=== PATIENT | male | born 1960 | race Caucasian/White ===

== ENCOUNTER 2017-12-16 21:04 | Emergency (ER) | payer BC, SELFPAY ==
[2017-12-16 21:05] VITALS: BP 129/92; PULSE 92; RESP 22; TEMP 36; O2SAT 100; BMI 34.4
--- NOTE | 2017-12-16 21:27 | ED.DCSUM_ITS ---
- ER Visit Summary Date of Service: 12/16/17 Chief Complaint: Left abdominal pain History of Present Illness: The patient is a 57 M who presents for 5 hours of severe left-sided abdominal pain radiating into the left lower back. Patient states it was sudden in onset, and after onset he had to have a large bowel movement. Pain did not subside afterwards. He has had associated nausea and vomited once. No diarrhea. Decreased urine output but no hematuria, dysuria, frequency or urgency. No fever. He does have a history of kidney stones in the past that did not require any intervention. No other medical problems. Physical Examination: Vital signs: afebrile, hemodynamically stable, no hypoxia on room air General: well nourished, well developed, in no distress appears uncomfortable Skin: warm, dry, no rash, no pallor HEENT: normocephalic and atraumatic; PERRL, EOMI, moist mucous membranes Cardiovascular: regular rate and rhythm without murmurs, no peripheral edema, 2 + pulses all distal extremities Respiratory: No increased work of breathing, lungs are clear to auscultation bilaterally, no rales, rhonchi or wheezing Abdominal: Abdomen is soft, tender in the left lower quadrant with normoactive bowel sounds, no guarding or rebound, no masses, no CVA tenderness MSK: Moves all extremities, no deformities, normal strength Neuro: Awake and alert, oriented ?4. No facial droop, sensation and motor function intact and symmetric Test Results: Abnormal Lab Results 12/16/17 12/16/17 21:25 21:25 WBC 15.4 H RBC 5.43 Hgb 17.1 H Hct 49.7 MCV 91.5 MCH 31.5 MCHC 34.4 RDW 13.4 RDW Differential 44.2 H Plt Count 277 MPV 10.0 Immature Gran % (Auto) 0.400 Neut % (Auto) 86.4 H Lymph % (Auto) 9.1 L Dundy % (Auto) 3.8 Eos % (Auto) 0.2 Baso % (Auto) 0.1 Absolute Neuts (auto) 13.3 H Absolute Lymphs (auto) 1.40 Total Counted Not Reportable Urine Color Yellow Urine Clarity Clear Urine pH 6.0 Ur Specific D[place] 1.020 Urine Protein 30 H Urine Glucose (UA) Normal Urine Ketones 5 H Urine Occult Blood 250 H Urine Nitrite Negative Urine Bilirubin Negative Urine Urobilinogen Normal Ur Leukocyte Esterase Negative Urine RBC 5-10 SEEN Urine WBC 0 SEEN Ur Squamous Epith Cells 0-5 SEEN Urine Bacteria 0 SEEN Urine Mucus 0 SEEN Clinical Impression(s) from Imaging Studies Abdomen/Pelvis CT 12/16/17 21:25 IMPRESSION: 2.9 mm stone distal left ureter with mild to moderate hydronephrosis left renal edema. Right side calcifications without evidence of hydronephrosis. Bilateral benign appearing renal cysts. Degenerative change thoracolumbar spine most significant at L2-L3 L3-L4. Hepatic steatosis with sparing. Electronically Signed: Rivka Crowe MD at 22:50 EDT Tel , Service support , Medications Given Sodium Chloride () 1,000 mls @ 250 mls/hr IV .Q4H RICKI Last Admin: 12/16/17 21:35 Dose: 250 mls/hr Discontinued Medications Ketorolac Tromethamine (Toradol) 15 mg IV X1 ONE Stop: 12/16/17 21:25 Last Admin: 12/16/17 21:36 Dose: 15 mg Morphine Sulfate () 4 mg IV X1 ONE Stop: 12/16/17 21:25 Last Admin: 12/16/17 21:35 Dose: 4 mg Promethazine HCl (Phenergan) 6.25 mg IV X1 ONE Stop: 12/16/17 21:32 Last Admin: 12/16/17 21:35 Dose: 6.25 mg Emergency Department Course and Treatment: Patient was given Toradol, Phenergan and morphine for symptomatic relief. Patient's labs remarkable for leukocytosis of 15.4 and hematuria on urinalysis. No renal insufficiency. No UTI. CT flank showed a 3.9 mm stone in the left distal ureter with mild hydronephrosis. Patient felt much better after medication. He was given a prescription for pain medication and Zofran for home. He was given follow-up with urology. He was given return precautions. Discharged home in improved condition with his . Treatment Plan: [] Disposition: [] Impression: Left ureteral colic with distal ureteral stone This note was generated with [employer] software. It may contain incorrect words, spelling, and punctuation that were not noted in review of the chart prior to signing ED Disposition - Plan for ED Patient: Chief Complaint: Flank Pain Referrals: Valeriano Pearce MD [Primary Care Provider] -
[2017-12-16 21:32] LABS: Bacteria 0 SEEN /hpf (None Seen); Mucous, Urine 0 SEEN /hpf (<or=2+); White Blood Cells 0 SEEN /hpf (0-5)
[2017-12-16] MEDS: 0.9% Normal Saline 1,000 ML 250 ML IV (21:35)
[2017-12-16] MEDS: Morphine 4 MG/ML Syringe IV (21:35)
[2017-12-16] MEDS: proMETHazine 25 MG/ML Syringe 6.25 MG IV (21:35)
[2017-12-16 21:36] LABS: Color, Urine Yellow (Yellow); Glucose, Dipstick Normal (Normal); Ketone-Dipstick 5 mg/dl (Negative); Leukocyte Esterase-Dipstick Negative /ul (Negative); Nitrite-Dipstick Negative (Negative); Occult Blood-Urine 250 /ul (Negative); Protein-Dipstick 30 mg/dl (Negative); Urine Bilirubin Dipstick Negative (Negative); Urine Clarity Clear (Clear); Urine Urobilinogen Normal (Normal)
[2017-12-16] MEDS: Ketorolac 30 MG/ML Syringe 15 MG IV (21:36)
[2017-12-16 21:37] LABS: Absolute Neutrophil Count 13.3 X10^3/uL (2.0-7.7); Basophil# 0.02 X10^3/uL; Basophil% 0.1 % (0-1); Eosinophil# 0.03 X10^3/uL; Eosinophils% 0.2 % (0-5); Hematocrit 49.7 % (40-54); Hemoglobin 17.1 g/dl (13.0-16.5); Lymphocyte % 9.1 % (19-41); Mean Corp Hgb Conc 34.4 g/gl (32-36); Mean Corpuscular Hgb 31.5 pg (27.0-32.0); Mean Corpuscular Volume 91.5 fL (80-94); Monocyte# 0.58 X10^3/uL; Monocyte% 3.8 % (0-10); Neutrophil # 13.26 X10^3/uL (2.7-7.7); Neutrophil % 86.4 % (47-70); Platelet Count 277 K/mm3 (150-450); RBC Distribution Width CV 13.4 % (11.6-14.6); RBC Distribution Width SD 44.2 fl (35.1-43.9); Red Blood Count 5.43 M/mm3 (4.6-6.2); White Blood Count 15.4 K/mm3 (4.4-11.0)
[2017-12-16 21:47] LABS: Red Blood Cells-Urine 5-10 SEEN /hpf (0-5)
[2017-12-16 21:48] LABS: Squamous Epithelial Cells - UA 0-5 SEEN /hpf (0-5)
[2017-12-16 21:49] LABS: POSITIVE COUNT NO; POSITIVE DIFFERENTIAL NO; POSITIVE MORPHOLOGY NO
--- NOTE | 2017-12-16 23:17 | ED.DEP ---
ED Disposition - Plan for ED Patient: Disposition: Home or Assisted Living Chief Complaint: Flank Pain Instructions: ED Stone Renal W Colic Prescriptions: Oxycodone HCl/Acetaminophen [Percocet 5/325] 1 tab PO Q6H PRN PRN 3 Days #12 tab PRN Reason: Pain Ondansetron [Zofran Odt] 4 mg PO Q8H PRN PRN #10 tab PRN Reason: Nausea Naproxen [Naprosyn] 500 mg PO BID PRN #20 tab Referrals: Valeriano Pearce MD [Primary Care Provider] - As Needed Tom Blank MD [STAFF PHYSICIAN] - 1 Week if not improving Additional Instructions: use the naproxen for pain and the percocet for severe pain. Use the ondansetron as needed for nausea. follow up with urology if you have any concerns, and return to the emergency department if your pain is poorly controlled at home, if you develop fever, inability to urinate, or of any other further concerns. If you have any worsening of your condition or any new concerning symptoms, please return immediately to the emergency department for another evaluation.
[2017-12-16 23:29] VITALS: BP 163/98; PULSE 97; RESP 18; O2SAT 95
[2017-12-16] MEDS: HYDROcodone Bitartrate/Apap 5/325 Tablet PO (23:39)
--- NOTE | 2017-12-16 23:41 | NURSING ---
URINAL, [facility] [employer] SENT HOME WITH THE PATIENT PER PATIENT REQUEST AND OK FROM DR. HERRON.
[2017-12-17 00:45] LABS: Anion Gap 15 (5-15); BUN 23 mg/dL (7-18); BUN/Creat Ratio 14.8 RATIO (10-20); Chloride 106 mmol/L (98-107); Creatinine, Serum 1.55 mg/dL (0.70-1.30); Estimated Creatinine Clearance 54.29 ml/min; Glucose 144 mg/dL (74-106); Potassium 5.5 mmol/L (3.5-5.1); Sodium Level 133 mmol/L (136-145)
[2017-12-21 00:16] LABS: EST Glomerular Filtration Rate 49 mL/min (>60); Est Glom Filt Rate - Afr Amer 60 mL/min (>60)
== END 2017-12-16 23:42 | disposition home or self-care (01) ==
PROVIDERS: Emergency Provider Emergency Medicine; PCP Family Medicine
DX: N13.2 Hydronephrosis with renal and ureteral calculous obstruction (principal); Z87.442 Personal history of urinary calculi
CPT/HCPCS: 74176; 80048; 81001; 85025; 96361; 96374; 96375; 99283; J7030

== ENCOUNTER → 2023-06-17 | Outpatient (CLI) | payer OTHER, SELFPAY ==
[2023-06-17 14:48] LABS: Bacteria 0 SEEN /hpf (None Seen); Mucous, Urine 0 SEEN /hpf (<or=2+); Red Blood Cells-Urine 0 SEEN /hpf (0-5); Squamous Epithelial Cells - UA 0 SEEN /hpf (0-5); White Blood Cells 0 SEEN /hpf (0-5)
[2023-06-17 15:47] LABS: EXAGEN MAILED SPECIMEN
[2023-06-17 17:37] LABS: Absolute Lymphocyte Count 2.97 X10^3/uL (0.83-4.51); Absolute Neutrophil Count 6.5 X10^3/uL (2.0-7.7); Basophil# 0.04 X10^3/uL; Basophil% 0.4 % (0-1); Eosinophil# 0.14 X10^3/uL; Eosinophils% 1.3 % (0-5); Hematocrit 52.1 % (40-54); Hemoglobin 17.5 g/dL (13.0-16.5); Lymphocyte # 2.97 X10^3/ul (0.83-4.51); Lymphocyte % 28.3 % (19-41); Mean Corp Hgb Conc 33.6 g/dL (32-36); Mean Corpuscular Hgb 30.2 pg (27.0-32.0); Mean Corpuscular Volume 89.8 fL (80-94); Mean Platelet Vol. 9.5 fl (6.2-12.0); Monocyte# 0.78 X10^3/uL; Monocyte% 7.4 % (0-10); NRBC Flagged by Analyzer 0 % (0-5); Neutrophil # 6.51 X10^3/uL (2.7-7.7); Neutrophil % 62.1 % (47-70); Platelet Count 316 K/mm3 (150-450); RBC Distribution Width CV 12.7 % (11.6-14.6); RBC Distribution Width SD 41.6 fl (35.1-43.9); White Blood Count 10.5 K/mm3 (4.4-11.0)
[2023-06-17 17:53] LABS: Erythrocyte Sedimentation Rate 16 mm/hr (0-20)
[2023-06-17 17:55] LABS: Color, Urine Yellow (Yellow); Glucose, Dipstick Normal (Normal); Ketone-Dipstick Negative (Negative); Leukocyte Esterase-Dipstick Negative /ul (Negative); Nitrite-Dipstick Negative (Negative); Occult Blood-Urine 10 /ul (Negative); Protein-Dipstick 15 mg/dl (Negative); Specific Gravity, Urine 1.025 (1.002-1.030); Urine Bilirubin Dipstick Negative (Negative); Urine Clarity Clear (Clear); Urine Urobilinogen Normal (Normal)
[2023-06-17 18:09] LABS: Protein:Creat Ratio 449 mg/g CRE (0-200)
--- OUTSIDE RECORDS SUMMARY | 2023-06-17 18:39 | XMS RPT_ITS | CCD ---
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 Name Role Phone Joseluis Pearce Ciara Unavailable Unavailable Unavailable [facility] ED, David Unavailable Unavaila ble Sheets DO, Papito Sol Primary Care Provider [phone] [facility] ED, David Unavailable Unavaila ble Marquis Davila MD Unavailable [phone] MARQUIS DAVILA Attending Unavailable SHEETS, PAPITO Referring Unavailable SHEETS, PAPITO Primary Care Unavailable SHEETS, PAPITO C Referring Unavailable SHEETS, PAPITO C Primary Care Unavailable SHEETS, PAPITO C Referring Unavailable SHEETS, PAPITO C Attending Unavailable SHEETS, PAPITO C Primary Care Unavailable SHEETS, PAPITO C Attending Unavailable SHEETS, PAPITO C Primary Care Unavailable SHEETS, PAPITO C Primary Care Unavailable MARQUIS DAVILA Referring Unavailable SHEETS, PAPITO C Primary Care Unavailable SHEETS, PAPITO C Referring Unavailable SHEETS, PAPITO C Referring Unavailable SHEETS, PAPITO C Primary Care Unavailable SHEETS, PAPITO C Referring Unavailable SHEETS, PAPITO C Primary Care Unavailable Allergies Allergy Classification Reported Allergen(s) Allergy Type Date of Onset Reaction(s) Facility (2 sources) Loratadine; Translations: [Claritin] Drug Allergy -[facility] DO Work Phone: (12 sources) Loratadine / Pseudoephedrine ; Translations: [LORATADINE-PSE UDOEPHEDRINE] Drug Allergy 2 Other: See Comments [facility] Work Phone: (12 sources) Meperidine; Translations: [MEPERIDINE] Drug Allergy [address] [facility] (1 source) ALLERGIES NOT ON FILE; Translations: [ALLERGIES NOT ON FILE] Propensity to adverse reactions (disorder) [facility] Medications Current Medications Medication Drug Class(es) Dates Sig (Normalized) Sig (Original) amoxicillin 875 mg / clavulanate 125 mg oral tablet (2 sources) Penicillin-class Antibacterial Start: 02-25-2023 End: 03-04-2023 take 1 tablet by mouth every twelve hours amoxicillin-clav ulanate potassium (AUGMENTIN) 875-125 mg per tablet Indications: Bacterial sinusitis Take 1 tablet by mouth every 12 hours for 7 days. 14 tablet 0 02/25/2023 03/04/2023 Active Completed/Discontinued Medications Medication Drug Class(es) Dates Sig (Normalized) Sig (Original) [id number] 200 actuat albuterol 0.09 mg/actuat metered dose inhaler (9 sources) beta2-Adrenergic Agonist Start: 02-28-2023 End: 03-22-2023 take 2 puff(s) by inhalation every four hours as needed for wheezing albuterol HFA (PROVENTIL HFA, VENTOLIN HFA) 90 mcg/actuation inhaler Indications: Bronchitis Inhale 2 Puffs as instructed every 4 hours as needed for wheezing/shortnes s of breath. 1 Each 0 03/22/2023 Active Problems Active Problems Problem Classification Problem Date Documented Date Episodic/Chronic Acute bronchitis (2 sources) Acute bronchitis; Translations: [Acute bronchitis] Episodic Allergic reactions (1 source) Contact dermatitis due to poison boom; Translations: [Allergic contact dermatitis due to plants, except food] Episodic Bacterial infection; unspecified site (2 sources) Other specified bacterial agents as the cause of diseases classified elsewhere; Translations: [Other specified bacterial agents as the cause of diseases classified elsewhere] Onset: 2023 Episodic Chronic obstructive pulmonary disease and bronchiectasis (2 sources) Bronchitis; Translations: [Bronchitis, not specified as acute or chronic] 02-28-2023 Episodic Coma; stupor; and brain damage (2 sources) Daytime somnolence; Translations: [Hypersomnia, unspecified] Episodic Disorders of lipid metabolism (2 sources) Mixed hyperlipidemia; Translations: [Mixed hyperlipidemia] Onset: 02-25-2023 02-25-2023 Chronic Esophageal disorders (2 sources) Gastroesophageal reflux disease without esophagitis; Translations: [Gastro-esophageal reflux disease without esophagitis] Onset: 02-25-2023 02-25-2023 Chronic Immunizations and screening for infectious disease (6 sources) Anti-nuclear factor positive; Translations: [Other specified abnormal immunological findings in serum] Onset: 05-28-2023 05-28-2023 Episodic Malaise and fatigue (2 sources) Fatigue; Translations: [Other malaise and fatigue] Episodic Other injuries and conditions due to external causes (2 sources) Injury of knee; Translations: [Knee, leg, ankle, and foot injury] Episodic Other lower respiratory disease (2 sources) Idiopathic interstitial pneumonia, not otherwise specified; Translations: [Idiopathic interstitial pneumonia, not otherwise specified (CMS/HCC)] Onset: 05-11-2023 Chronic Other lower respiratory disease (3 sources) Interstitial lung disease; Translations: [Interstitial pulmonary disease, unspecified] Onset: 05-28-2023 05-28-2023 Chronic Other lower respiratory disease (1 source) Interstitial pulmonary disease, unspecified; Translations: [Interstitial pulmonary disease (HCC)] Onset: 05-03-2023 Chronic Other lower respiratory disease (2 sources) Snoring; Translations: [Other respiratory abnormalities] Episodic Other lower respiratory disease (1 source) Cough; Translations: [Acute cough] 02-27-2023 Episodic Other lower respiratory disease (3 sources) Persistent cough; Translations: [Persistent cough] Onset: 04-17-2023 03-22-2023 Episodic Other lower respiratory disease (2 sources) Chronic cough; Translations: [Chronic cough] Onset: 2023 Episodic Other non-traumatic joint disorders (2 sources) Pain in unspecified knee; Translations: [Knee pain] Episodic Other nutritional; endocrine; and metabolic disorders (11 sources) Obese class II; Translations: [Obesity, unspecified] Onset: 02-25-2023 Chronic Other nutritional; endocrine; and metabolic disorders (1 source) Obesity, unspecified; Translations: [Obesity, Class II, BMI 35-39.9] Onset: 02-25-2023 Chronic Other upper respiratory infections (5 sources) Bacterial sinusitis; Translations: [Chronic sinusitis, unspecified] Onset: 2023 02-27-2023 Chronic Other upper respiratory infections (2 sources) Acute maxillary sinusitis; Translations: [Acute maxillary sinusitis] Episodic Residual codes; unclassified (2 sources) Obstructive sleep apnea of adult; Translations: [Obstructive sleep apnea (adult)(pediatric)] Chronic Spondylosis; intervertebral disc disorders; other back problems (10 sources) Displacement of thoracic intervertebral disc without myelopathy; Translations: [Other intervertebral disc displacement, thoracic region] Onset: 08-06-2013 08-06-2013 Chronic Sprains and strains (8 sources) Strain of knee; Translations: [Sprains and strains of unspecified site of knee and leg] Episodic Past or Other Problems Problem Classification Problem Date Documented Da te Episodic/Chronic Nonspecific chest pain (3 sources) Chest pain; Translations: [Chest pain, unspecified] Onset: 03-05-2023 02-27-2023 Episodic Other connective tissue disease (10 sources) Disease suspected; Translations: [Other symptoms and signs involving the nervous system] Onset: 07-25-2020 07-25-2020 Episodic Other screening for suspected conditions (not mental disorders or infectious disease) (2 sources) Patient encounter status; Translations: [Encounter for screening for malignant neoplasm of prostate] Onset: 02-25-2023 02-25-2023 Episodic Spondylosis; intervertebral disc disorders; other back problems (10 sources) Lumbar disc prolapse with radiculopathy; Translations: [Intervertebral disc disorders with radiculopathy, lumbar region] Onset: 08-06-2013 08-06-2013 Episodic Results Test Name Value Interpretation Reference Range Facil ity Vital Signs Date Time Vital Sign Value Performing Clinician Facility 02-25-2023 13:48-0500 Body height 180.3 cm Papito Sheets DO Work Phone: [facility] 02-25-2023 13:48-0500 Body temperature 98.01 [degF] Papito Sheets DO Work Phone: [facility] 02-25-2023 13:48-0500 Body weight 126.1 kg Papito Sheets DO Work Phone: [facility] 02-25-2023 13:48-0500 Diastolic blood pressure 76 mm[Hg] Papito Sheets DO Work Phone: [facility] 02-25-2023 13:48-0500 Heart rate 92 /min Papito Sheets DO Work Phone: [facility] 02-25-2023 13:48-0500 Respiratory rate 18 /min Papito Sheets DO Work Phone: [facility] 02-25-2023 13:48-0500 SaO2% (BldA) [Mass fraction] 96 % Papito Sheets DO Work Phone: [facility] 02-25-2023 13:48-0500 Systolic blood pressure 126 mm[Hg] Papito Sheets DO Work Phone: [facility] 10-02-2022 15:46-0400 Body height 180.3 cm Papito Sheets DO Work Phone: [facility] 10-02-2022 15:46-0400 Body temperature 98.01 [degF] Papito Sheets DO Work Phone: [facility] 10-02-2022 15:46-0400 Body weight 125.37 kg Papito Sheets DO Work Phone: [facility] 10-02-2022 15:46-0400 Diastolic blood pressure 76 mm[Hg] Papito Sheets DO Work Phone: [facility] 10-02-2022 15:46-0400 Heart rate 92 /min Papito Sheets DO Work Phone: [facility] 10-02-2022 15:46-0400 Respiratory rate 18 /min Papito Sheets DO Work Phone: [facility] 10-02-2022 15:46-0400 SaO2% (BldA) [Mass fraction] 95 % Papito Sheets DO Work Phone: [facility] 10-02-2022 15:46-0400 Systolic blood pressure 124 mm[Hg] Papito Sheets DO Work Phone: [facility] 03-08-2021 13:33-0500 Body height 180.34 cm Joseluis Pearce Work Phone: [facility] DO Work Phone: 03-08-2021 13:33-0500 Body mass index (BMI) [Ratio] 36.47 kg/m2 Joseluis Pearce Work Phone: [facility] DO Work Phone: 03-08-2021 13:33-0500 Body surface area Derived from formula 2.36 m2 Joseluis Pearce Work Phone: [facility] DO Work Phone: 03-08-2021 13:33-0500 Body temperature 97.7 [degF] Joseluis Pearce Work Phone: [facility] DO Work Phone: 03-08-2021 13:33-0500 Body weight 118.62 kg Joseluis Pearce Work Phone: [facility] DO Work Phone: 03-08-2021 13:33-0500 Diastolic blood pressure 80 mm[Hg] Joseluis Pearce Work Phone: [facility] DO Work Phone: 03-08-2021 13:33-0500 Heart rate 90 /min Joseluis Pearce Work Phone: [facility] DO Work Phone: 03-08-2021 13:33-0500 SaO2% (BldA) [Mass fraction] 94 % Joseluis Pearce Work Phone: [facility] DO Work Phone: 03-08-2021 13:33-0500 Systolic blood pressure 124 mm[Hg] Joseluis Pearce Work Phone: [facility] DO Work Phone: 03-08-2021 13:33-0500 17 1 Joseluis R Kontak Work Phone: [facility] DO Work Phone: Encounters Encounter Date Encounter Type Care Provider Facility Start: 06-07-2023 Telephone encounter Papito Khan DO Work Phone: [facility] Procedures Date Procedure Procedure Detail Performing Clinician Start: 05-11-2023 RONALDO-WITH REFLEX TO KI Start: 05-11-2023 ANTI-NEUTROPHILIC CY TOPLASMIC ANTIBODY Start: 05-11-2023 C-reactive protein Start: 05-11-2023 CBC W Auto Different ial panel - Blood Start: 05-11-2023 CITRULLINE ANTIBODY, IGG Start: 05-11-2023 Comprehensive metabo lic 2000 panel - Serum or Plasma Start: 05-11-2023 KI PANEL Start: 05-11-2023 HYPERSENSITIVITY PANEL Start: 05-11-2023 Natriuretic peptide B [Mass/volume] in Blood Start: 05-11-2023 RHEUMATOID FACTOR Start: 2023 BORDETELLA PERTUSSIS / PARAPERTUSSIS, PCR Start: 2023 LEGIONELLA ANTIGEN, URINE Start: 2023 T-SPOT TB Start: 03-05-2023 Radiologic exam chest 2 views Papito Khan DO Work Phone: Start: 02-25-2023 Ecg routine ecg w/le ast 12 lds w/i&r Papito Khan DO Work Phone: Start: 04-20-2019 Lipid 1996 panel - S katiana or Plasma Papito Khan DO Work Phone: Plan of Treatment Date Care Activity Detail Author Start: 05-11-2026 Diabetes Screening Diabetes Screenin g [facility] Start: 04-20-2024 Lipid 1996 panel - Serum or Plasma Lipid Screening [facility] Start: 04-20-2024 Lipid panel Lipid Screening [facility] Start: 04-20-2024 [address] S[address]EN L[address]ID SCREEN [facility] Start: 04-15-2023 Depression Assessment Depression Ass essment [facility] Start: 03-22-2023 End: 06-21-2023 B. PERTUSSIS/PARAPERTUSSIS DNA, QL, PCR B. PERTUSSIS/PARAPERTUSSIS DNA, QL, PCR Lab Routine Persistent cough Expected: 03/22/2023, Expires: 06/21/2023 [facility] Work Phone: Immunizations Immunization Date Immunization Notes Care Provider Ching damon 05-30-2021 zoster vaccine recombinant Papito Sheets DO Work Phone: [facility] 03-28-2021 zoster vaccine recombinant Papito Sheets DO Work Phone: [facility] 06-27-2016 influenza virus vacc ine, unspecified formulation Papito Sheets DO Work Phone: [facility] Payers Date Payer Category Payer Private Health Insurance [id number] 2021 Unknown 1960 Unknown [id number] 1960 Unknown [id number] 1960 Unknown [id number] Social History Date Type Detail Facility Start: 02-25-2023 End: 04-19-2023 Never a smoker Never a smoker [facility] Start: 09-16-2013 End: 04-19-2023 Tobacco smoking status NHIS Never smoked tobacco [facility] Start: 09-16-2013 End: 04-19-2023 Tobacco use and exposure [facility] Start: 10-02-2022 End: 04-19-2023 Alcohol intake Current drinker of alcohol (finding) [facility] Start: 10-02-2022 [facility] Start: 1960 Sex Assigned At Not on file [facility] Start: 02-25-2023 End: 04-19-[address] [facility] Adult Depression Screening Assessment [address] [facility] History of tobacco use Passive smoker [facility] Medical Equipment Procedure Code Equipment Code Equipment Origin al Text Equipment Identifier Dates Arthrocell 5.0cc Cellular Bone Graft - [id number] Start: 08-03-2020 Screw Quickfix 3 .6mm Mini Full Thread Titanium 30mm Bone Cannulated - [id number] Start: 08-03-2020 Staple Dynanite Nitinol Titanium 47f54xa Bone Sterile - [id number] Start: 08-03-2020 Screw Quickfix 3 .6mm Mini Full Thread Titanium 28mm Bone Cannulated - [id number] Start: 08-03-2020 Supermx Angelita Sta ple W/Instruments 20mm X 15mm [id number] Start: 08-03-2020 Clinical Notes 08-06-2013 to 06-07-2023 Telephone Encounter - Beatriz Barrera MA - 06/07/2023 2:13 PM ESTTelephone Encounter - Papito Khan DO - 06/07/2023 2:07 PM ESTTelephone Encounter - Sheba Alston MA - 06/07/2023 1:54 PM EST Note Date & Type Note Facility 06-07-2023 Miscellaneous Notes Copy printed and handed to patient Beatriz Barrera MA I but the most recent copy in the shredder box because we already had a copy, but it can also be printed out of his chart to give to him Papito Khan DO Patient aware and wants a copy of test. He will be her later today. Sheba Alston MA Yes, we received the sleep test results - they are dated 03/20/21. Papito Khan DO Pt. Lm on vm wanting to know if you received his sleep apnea test. If not he will go pick it up in [place]. Please advise. Sheba Alston MA documented in this encounter [facility] 05-28-2023 Miscellaneous Notes Pt would like referral to Dr. Calixto rheumatololgist. He was referred to another provider, but would prefer to see Dr. Marily Khan DO documented in this encounter [facility] 05-16-2023 Miscellaneous Notes Patient calling to discuss blood work. Stated he got a voicemail informing that the results could mean multiple things( like lupus etc. ) He stated he called a few times this week and has not received a call back yet. Please call patient at [phone]. Thank you Thank you! documented in this encounter [facility] 05-03-2023 Note HNO ID: [id number] Author: DAYTON ALVAREZ CT Service: Radiology Author Type: Technologist Type: Progress Notes Filed: 05/03/2023 09:53 Note Text: Radiology Service Progress Note PATIENT NAME: Mily Harris DATE OF SERVICE: May 03, 2023 TIME: 9:53 AM PATIENT IDENTITY VERIFICATION COMPLETED USING TWO (2) IDENTIFIERS: Name and Date of confirmed by patient verbally. FALL SCREENING: Has the patient had 2 falls in the last year or 1 fall with injury or currently using an Ambulatory Assistive Device (Walker, Cane, Wheelchair, Crutches, etc.)? No PATIENT GENDER DATA: Male PATIENT RELEVANT IMPLANT DATA REVIEWED: Not Applicable RADIOLOGY DEPARTMENT: CT; Exam(s) Completed: Chest PERIPHERAL IV DATA: Not applicable SIGNED BY: SAWYER Anaya May 03, 2023 9:53 AM [facility] 04-19-2023 Note HNO ID: [id number] Author: MARQUIS DAVILA MD Service: ? Author Type: Physician Type: Progress Notes Filed: 04/19/2023 12:50 Note Text: [facility]PART[facility]UL[facility]ARY [facility]ICINE OFFICE VISIT CONSULT 04/19/2023 Patient Name: Mily Harris PRIMARY CARE PHYSICIAN: Papito Khan DO REASON FOR CONSULT: Persistent cough, postnasal drip, wheezing, obesity, restrictive PFTs better REFERRING PHYSICIAN: Papito Khan DO My final recommendations will be communicated to the requesting health care provider by way of the shared medical record for internal providers or by letter via US mail for external providers. CHIEF COMPLAINT: Persistent cough, postnasal drip, wheezing, obesity HISTORY OF PRESENT ILLNESS: Mily Harris is a 63 year old male, BMI 38.47 kg/m2 with a PMH significant for seasonal allergies, here for evaluation for persistent cough. Patient has been having cough for the last 11 weeks Sometimes productive of small amount of greenish sputum Complains about nasal congestion and postnasal drip as well No shortness of breath Does have wheezing and chest congestion Cough is worse when he lays down at night Also has GERD patient started on Pepcid [place] better for a while and then a week ago he started having the cough again-thinks he got a cold from his grandkids Was treated by Dr. Khan with couple of rounds of antibiotics and steroids with clinical improvement. Unfortunately the cough came back after antibiotic and steroids were completed. Symptoms are moderate, persistent, occur at rest and on exertion and partially relieved by albuterol inhaler Has horses and hay Uses Zyrtec for his seasonal allergies Currently using supplements since he started feeling sick Spirometry today normal Total lung capacity reduced DLCO normal Chest x-ray normal MMRC Dyspnea Scale: 0. Not troubled by breathlessness except on strenuous exercise Short of breath when hurrying or walking up a slight hill Walks slower than contemporaries on the level because of breathlessness, or has to stop for breath when walking at own pace Stops for breath after about 100 m or after a few minutes on the level Too breathless to leave the house, or breathless when dressing or undressing Environmental/ Occupational Exposure History: Pets: No birds Asbestos: No significant exposure Silica: No significant exposure Coamo: No significant exposure Mold: No significant exposure Hot tub: No significant exposure Fumes: No significant exposure Metal dust: No significant exposure Beryllium: No significant exposure Dust: No significant exposure Medications: No relevant exposure for interstitial lung diseases PAST MEDICAL HISTORY Diagnosis Date Low back pain Seasonal allergies PAST SURGICAL HISTORY Procedure Laterality Date PAST SURGICAL HISTORY OF 2012 right big toe arthritis PAST SURGICAL HISTORY OF Right Right big toe. cleaned out Arthtitis SPINAL CORD FINE NEEDLE ASPIRATION 1998 Cortisone shots. FAMILY HISTORY Problem Relation Age of Onset other (scladerma) Mother at age 51 Cancer Father lung at age 85 COPD Father Diabetes Sister No Known Problems Sister No Known Problems Sister No Known Problems Sister Cancer Sister No Known Problems Brother No Known Problems Brother Cancer Maternal Grandfather lung Prostate Cancer Other 2 paternal uncles and one cousin no pertinent family history Social History Tobacco Use Smoking status: Never Passive exposure: Past Smokeless tobacco: Never Vaping Use Vaping Use: Never used Substance Use Topics Alcohol use: Yes Comment: occasionally Drug use: No ALLERGIES ALLERGIES Allergen Reactions Demerol [Meperidine] Vomiting Loratadine-Pseudoep* Other: See Comments Hand shakiness CURRENT OUTPATIENT MEDICATIONS albuterol HFA (PROVENTIL HFA, VENTOLIN HFA) 90 mcg/actuation inhaler Inhale 2 Puffs as instructed every 4 hours as needed for wheezing/shortness of breath. famotidine (PEPCID) 40 mg tablet Take 1 tablet by mouth daily at bedtime. multivit-min/folic/vit K/lycop (MEN'S MULTIVITAMIN ORAL) Take by mouth. TURMERIC ORAL Take by mouth. cetirizine (ZYRTEC) 10 mg tablet Take 1 tablet by mouth once daily. OTC NUTRITIONAL SUPPLEMENT Prostate plus/ Beta Prostate azithromycin (ZITHROMAX Z-ELEAZAR) 250 mg tablet 2 tablets by mouth first day then 1 tablet the next 4 days (Patient not taking: Reported on 04/19/2023) predniSONE (DELTASONE) 20 mg tablet Take 3 pills by mouth daily for 3 days, then 2 pills by mouth daily for 3 days, then 1 pill by mouth daily for 3 days (Patient not taking: Reported on 04/19/2023) benzonatate (TESSALON PERLES) 100 mg capsule Take 1 capsule by mouth three times a day as needed for cough. (Patient not taking: Reported on 04/19/2023) REVIEW OF SYSTEMS Review of Systems Constitutional: Negative for chills, fever and weight loss. HE (more content not included)... [facility] 04-17-2023 Note HNO ID: [id number] Author: Alisa Ellis, HELEN Service: ? Author Type: Registered Resp Therapist Type: Progress Notes Filed: 04/17/2023 2:24 PM Note Text: PULM FUNCTION SMARTBLOCK: Provider: Reggie Pedro MD Assisting Tech: Alisa Ellis, HELEN Spirometry w/BD: 1 DLCO: 1 LV - Gas: 1 [facility] 03-22-2023 Miscellaneous Notes I called to talk to patient re: pt's symptoms. I spoke with his . He has taken a covid 19 test. He is coughing severely. I sent in Rx for zpack, prednisone, inhaler. Advised pt to get blood work and make appt His expressed understanding Papito Khan DO Patient left message stating he is almost done with his 3rd round of antibiotics and he is still not feeling better. States he cannot lay down or sit back in a chair without coughing. States he can hear himself wheezing and it is keeping him up at night. Would like to know if there is a stronger antibiotic that will get rid of this. Please advise. Rukhsana Betancourt MA documented in this encounter [facility] 03-18-2023 Miscellaneous Notes Patient notified. Declined fredrick suárez. Sheba Alston MA Addended by: PAPITO KHAN on: 03/18/2023 09:57 AM Modules accepted: Orders I will send in another antibiotic. Does he want more navin ho? Papito Khan DO Patient called he is still has his cough, which is causing him to have low back pain and rib pain. The syrup that was sent in with codeine was making him sick so he stopped taking it but he would like to know if there is something else he can take or have sent in Beatriz Barrera MA documented in this encounter [facility] 03-05-2023 Miscellaneous Notes Patient called back and left a message stating he still has his cough so he was wondering if he could get a refill of his antibiotic Beatriz Barrera MA Patient is informed Beatriz Barrera MA ----- Message from Papito Khan DO sent at 03/05/2023 2:46 PM EST ----- Your chest xray was normal Papito Khan DO' documented in this encounter [facility] 03-05-2023 Note HNO ID: [id number] Author: Quiana Ng RT(R) Service: ? Author Type: Technologist Type: Progress Notes Filed: 03/05/2023 1:02 PM Note Text: Radiology Service Progress Note PATIENT NAME: Mily Harris DATE OF SERVICE: March 05, 2023 TIME: 1:02 PM PATIENT IDENTITY VERIFICATION COMPLETED USING TWO (2) IDENTIFIERS: Name and Date of confirmed by patient verbally. FALL SCREENING: Has the patient had 2 falls in the last year or 1 fall with injury or currently using an Ambulatory Assistive Device (Walker, Cane, Wheelchair, Crutches, etc.)? No PATIENT GENDER DATA: Male PATIENT RELEVANT IMPLANT DATA REVIEWED: Not Applicable RADIOLOGY DEPARTMENT: General X-ray: Exam(s) Completed: Chest X-Ray PERIPHERAL IV DATA: Not applicable SIGNED BY: RT Oneil(R) March 05, 2023 1:02 PM [facility] 03-05-2023 History of Presen t illness Narrative Radiology Service Progress Note PATIENT NAME: Mily Harris DATE OF SERVICE: March 05, 2023 TIME: 1:02 PM PATIENT IDENTITY VERIFICATION COMPLETED USING TWO (2) IDENTIFIERS: Name and Date of confirmed by patient verbally. FALL SCREENING: Has the patient had 2 falls in the last year or 1 fall with injury or currently using an Ambulatory Assistive Device (Walker, Cane, Wheelchair, Crutches, etc.)? No PATIENT GENDER DATA: Male PATIENT RELEVANT IMPLANT DATA REVIEWED: Not Applicable RADIOLOGY DEPARTMENT: General X-ray: Exam(s) Completed: Chest X-Ray PERIPHERAL IV DATA: Not applicable SIGNED BY: RT Oneil(R) March 05, 2023 1:02 PM documented in this encounter [facility] 02-28-2023 Miscellaneous Notes Addended by: PAPITO KHAN on: 02/28/2023 07:48 PM Modules accepted: Orders LINDA Brewer called they unable to prescribe the strength that was sent in, she states a new script could be sent in for a 10 per 100 per 5 Beatriz Barrera MA Left message informing patient. Rukhsana Betancourt MA Pt may take all of those together as needed Papito Khan DO Patient is informed and would like the cough syrup but he wants to know if he can take this medication together Mucinex DM, Augmentin, tessalon perles, prednisone, albuterol, and the cough syrup Beatriz Barrera MA Please call pt - I called in prednisone and an albuterol inhaler. They both will help with his cough. Does he want codeine cough medicine? Papito Khan DO Patient left message stating the tessalon pearls are not helping his cough and would like to know if a cough syrup could be sent in. States he is coughing so hard he almost vomits and he has bad stomach cramps from coughing so hard. Please advise. Rukhsana Betancourt MA documented in this encounter [facility] 02-25-2023 Note HNO ID: [id number] Author: Papito Khan DO Service: ? Author Type: Physician Type: Progress Notes Filed: 02/27/2023 8:37 PM Note Text: Subjective HPI Pt is here for acute visit He has not felt well for about 2 weeks with cough, productive of sputum only in the morning, but otherwise dry His grandchildren visited, were sick with cold symptoms, and may have infected him He has acid reflux, wonders if that is contributing to his cough He took Tums for indigestion and burning in his esophagus, which helped the cough He has left ear pain, but it has hurt for many years, and pain radiates into left jaw He gets fluid build up in that ear Claritin d was helping the symptoms, but he got tremors from that He is wheezing at night He started an exercise program 4 weeks ago. ALLERGIES Allergen Reactions Demerol [Meperidine] Vomiting Loratadine-Pseudoep* Other: See Comments Hand shakiness Current Outpatient Medications Medication Sig Dispense Refill multivit-min/folic/vit K/lycop (MEN'S MULTIVITAMIN ORAL) Take by mouth. TURMERIC ORAL Take by mouth. cetirizine (ZYRTEC) 10 mg tablet Take 1 tablet by mouth once daily. OTC NUTRITIONAL SUPPLEMENT Prostate plus/ Beta Prostate No current facility-administered medications for this visit. 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 Suspected Sleep Apnea Obesity, Class II, Bmi 35-39.9 Social History Tobacco Use Smoking status: Never Smokeless tobacco: Never Vaping Use Vaping Use: Never used Substance Use Topics Alcohol use: Yes Comment: occasionally Drug use: No Family History Problem Relation Age of Onset other (scladerma) Mother at age 51 Cancer Father lung at age 85 COPD Father Diabetes Sister No Known Problems Sister No Known Problems Sister No Known Problems Sister Cancer Sister No Known Problems Brother No Known Problems Brother Cancer Maternal Grandfather lung Prostate Cancer Other 2 paternal uncles and one cousin Reviewed past medical history, family history and surgeries. All medications and supplements were reviewed with the patient. Review of Systems Constitutional: Negative for chills, diaphoresis, fever, malaise/fatigue and weight loss. HENT: Positive for ear pain. Negative for hearing loss. Jaw pain b/l Eyes: Negative for blurred vision and double vision. Respiratory: Positive for cough. Negative for shortness of breath. Cardiovascular: Positive for chest pain. Negative for palpitations and leg swelling. Gastrointestinal: Negative for constipation, diarrhea and heartburn. Genitourinary: Negative for dysuria and frequency. Musculoskeletal: Negative for back pain, falls, joint pain and myalgias. Skin: Negative for itching and rash. Neurological: Negative for dizziness, weakness and headaches. Endo/Heme/Allergies: Does not bruise/bleed easily. Psychiatric/Behavioral: Negative for depression and substance abuse. The patient does not have insomnia. Objective BP 126/76 Pulse 92 Temp 36.7 ?C (98 ?F) Resp 18 Ht 180.3 cm (5' 11 ) Wt 126.1 kg (278 lb) SpO2 96% BMI 38.77 kg/m? Physical Exam Constitutional: Appearance: Normal appearance. He is obese. HENT: Head: Normocephalic and atraumatic. Nose: Nose normal. Mouth/Throat: Mouth: Mucous membranes are moist. Dentition: Normal dentition. Eyes: General: Lids are normal. Extraocular Movements: Extraocular movements intact. Conjunctiva/sclera: Conjunctivae normal. Pupils: Pupils are equal, round, and reactive to light. Neck: Thyroid: No thyroid mass or thyromegaly. Vascular: No carotid bruit. Trachea: Phonation normal. Cardiovascular: Rate and Rhythm: Normal rate and regular rhythm. Heart sounds: Normal heart sounds. No murmur heard. No friction rub. No gallop. Pulmonary: Effort: Pulmonary effort is normal. Breath sounds: Normal breath sounds. No wheezing or rales. Abdominal: General: Bowel sounds are normal. There is no distension. Palpations: Abdomen is soft. There is no mass. Tenderness: There is no abdominal tenderness. Musculoskeletal: General: No swelling or tenderness. Normal range of motion. Cervical back: Normal range of motion and neck supple. No edema. Lymphadenopathy: Cervical: No cervical adenopathy. Skin: General: Skin is warm and dry. Findings: No erythema or rash. Nails: There is no clubbing. Neurological: Mental Status: He is alert and oriented to person, place, and time. Cranial Nerves: No cranial nerve deficit. Motor: Motor function is intact. Coordination: Coordination normal. Gait: Gait is intact. Psychiatric: Attention and Perception: Attention normal. Mood and Affect: Mood and affect normal. Speech: Speech normal. Behavior: Behavior normal. Behavior is cooperative. Thought Content: Thought content normal. Cognition and Ozzy (more content not included)... [facility] 02-25-2023 History of Presen t illness Narrative Subjective HPI Pt is here for acute visit He has not felt well for about 2 weeks with cough, productive of sputum only in the morning, but otherwise dry His grandchildren visited, were sick with cold symptoms, and may have infected him He has acid reflux, wonders if that is contributing to his cough He took Tums for indigestion and burning in his esophagus, which helped the cough He has left ear pain, but it has hurt for many years, and pain radiates into left jaw He gets fluid build up in that ear Claritin d was helping the symptoms, but he got tremors from that He is wheezing at night He started an exercise program 4 weeks ago. ALLERGIES Allergen Reactions Demerol [Meperidine] Vomiting Loratadine-Pseudoep* Other: See Comments Hand shakiness Current Outpatient Medications Medication Sig Dispense Refill multivit-min/folic/vit K/lycop (MEN'S MULTIVITAMIN ORAL) Take by mouth. TURMERIC ORAL Take by mouth. cetirizine (ZYRTEC) 10 mg tablet Take 1 tablet by mouth once daily. OTC NUTRITIONAL SUPPLEMENT Prostate plus/ Beta Prostate No current facility-administered medications for this visit. 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 Suspected Sleep Apnea Obesity, Class II, Bmi 35-39.9 Social History Tobacco Use Smoking status: Never Smokeless tobacco: Never Vaping Use Vaping Use: Never used Substance Use Topics Alcohol use: Yes Comment: occasionally Drug use: No Family History Problem Relation Age of Onset other (scladerma) Mother at age 51 Cancer Father lung at age 85 COPD Father Diabetes Sister No Known Problems Sister No Known Problems Sister No Known Problems Sister Cancer Sister No Known Problems Brother No Known Problems Brother Cancer Maternal Grandfather lung Prostate Cancer Other 2 paternal uncles and one cousin Reviewed past medical history, family history and surgeries. All medications and supplements were reviewed with the patient. Review of Systems Constitutional: Negative for chills, diaphoresis, fever, malaise/fatigue and weight loss. HENT: Positive for ear pain. Negative for hearing loss. Jaw pain b/l Eyes: Negative for blurred vision and double vision. Respiratory: Positive for cough. Negative for shortness of breath. Cardiovascular: Positive for chest pain. Negative for palpitations and leg swelling. Gastrointestinal: Negative for constipation, diarrhea and heartburn. Genitourinary: Negative for dysuria and frequency. Musculoskeletal: Negative for back pain, falls, joint pain and myalgias. Skin: Negative for itching and rash. Neurological: Negative for dizziness, weakness and headaches. Endo/Heme/Allergies: Does not bruise/bleed easily. Psychiatric/Behavioral: Negative for depression and substance abuse. The patient does not have insomnia. Objective BP 126/76 Pulse 92 Temp 36.7 C (98 F) Resp 18 Ht 180.3 cm (5' 11 ) Wt 126.1 kg (278 lb) SpO2 96% BMI 38.77 kg/m Physical Exam Constitutional: Appearance: Normal appearance. He is obese. HENT: Head: Normocephalic and atraumatic. Nose: Nose normal. Mouth/Throat: Mouth: Mucous membranes are moist. Dentition: Normal dentition. Eyes: General: Lids are normal. Extraocular Movements: Extraocular movements intact. Conjunctiva/sclera: Conjunctivae normal. Pupils: Pupils are equal, round, and reactive to light. Neck: Thyroid: No thyroid mass or thyromegaly. Vascular: No carotid bruit. Trachea: Phonation normal. Cardiovascular: Rate and Rhythm: Normal rate and regular rhythm. Heart sounds: Normal heart sounds. No murmur heard. No friction rub. No gallop. Pulmonary: Effort: Pulmonary effort is normal. Breath sounds: Normal breath sounds. No wheezing or rales. Abdominal: General: Bowel sounds are normal. There is no distension. Palpations: Abdomen is soft. There is no mass. Tenderness: There is no abdominal tenderness. Musculoskeletal: General: No swelling or tenderness. Normal range of motion. Cervical back: Normal range of motion and neck supple. No edema. Lymphadenopathy: Cervical: No cervical adenopathy. Skin: General: Skin is warm and dry. Findings: No erythema or rash. Nails: There is no clubbing. Neurological: Mental Status: He is alert and oriented to person, place, and time. Cranial Nerves: No cranial nerve deficit. Motor: Motor function is intact. Coordination: Coordination normal. Gait: Gait is intact. Psychiatric: Attention and Perception: Attention normal. Mood and Affect: Mood and affect normal. Speech: Speech normal. Behavior: Behavior normal. Behavior is cooperative. Thought Content: Thought content normal. Cognition and Memory: Cognition and memory normal. Judgment: Judgment normal. ASSESSMENT/PLAN: 1. Chest pain, unspecified type - ICD9: 786.50, ICD10: R07.9 (primary diagnosis) - ECG B/O W INTERP (MED OFFICE) shows nonspecific T wave abnormality - EXERCISE STRESS ECG (WITHOUT IMAGING) - XR CHEST 2V FRONTAL/LAT 2. Acute cough - ICD9: 786.2, ICD10: R05.1 Rx for tessalon perles 3. Bacterial sinusitis Rx for augmentin 4. Gastroesophageal reflux disease without esophagitis - ICD9: 530.81, ICD10: K21.9 - FAMOTIDINE 40 MG TABLET 5. Hyperlipidemia, mixed - ICD9: 272.2, ICD10: E78.2 Pt due for blood work - CBC - COMP METABOLIC PANEL - LIPID PANEL BASIC 5. Screening for prostate cancer - ICD9: V76.44, ICD10: Z12.5 - PSA/PROSTSPECAG SCRN 6. Obesity, Class II, BMI 35-39.9 - ICD9: 278.00, ICD10: E66.9 Lifestyle modification recommended Papito Khan DO documented in this encounter [facility] 10-02-2022 Note HNO ID: [id number] Author: Papito Khan DO Service: ? 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 TURMERIC ORAL Take by mouth. cetirizine (ZYRTEC) 10 mg tablet Take 1 tablet by mouth once daily. OTC NUTRITIONAL SUPPLEMENT Prostate plus/ Beta Prostate coffee xt/phosphatidyl serine (NEURIVA ORIGINAL ORAL) Take by mouth once daily. (Patient not taking: No sig reported) gabapentin (NEURONTIN) 300 mg capsule Take 1 capsule by mouth three times daily for 14 days. Do not start before January 03, 2021. (Patient not taking: No sig reported) 42 capsule 0 gabapentin (NEURONTIN) 100 mg capsule Take 1 capsule by mouth three times daily for 14 days. (Patient not taking: No sig reported) 42 capsule 0 ibuprofen (MOTRIN) 200 mg tablet Take 200 mg by mouth every 6 hours as needed. (Patient not taking: No sig reported) Cetirizine 10 mg cap Take by mouth once daily. (Patient not taking: Reported on 10/02/2022) No current facility-administered medications for this visit. 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 Suspected Sleep Apnea Social History Tobacco Use Smoking status: Never Smokeless tobacco: Never Vaping Use Vaping Use: Never used Substance Use Topics Alcohol use: Yes Comment: occasionally Drug use: No Family History Problem Relation Age of Onset other (scladerma) Mother at age 51 Cancer Father lung at age 85 COPD Father Diabetes Sister No Known Problems Sister No Known Problems Sister No Known Problems Sister Cancer Sister No Known Problems Brother No Known Problems Brother Cancer Maternal Grandfather lung Prostate Cancer Other 2 paternal uncles and one cousin Reviewed past medical history, family history and surgeries. All medications and supplements were reviewed with the patient. Review of Systems Constitutional: Negative for chills, diaphoresis, fever, malaise/fatigue and weight loss. HENT: Negative for ear pain and hearing loss. Eyes: Negative for blurred vision and double vision. Respiratory: Negative for cough and shortness of breath. Cardiovascular: Negative for chest pain, palpitations and leg swelling. Gastrointestinal: Negative for constipation, diarrhea and heartburn. Genitourinary: Negative for dysuria and frequency. Musculoskeletal: Negative for back pain, falls, joint pain and myalgias. Skin: Negative for itching and rash. Neurological: Negative for dizziness, weakness and headaches. Endo/Heme/Allergies: Does not bruise/bleed easily. Psychiatric/Behavioral: Negative for depression and substance abuse. The patient does not have insomnia. Objective BP 124/76 Pulse 92 Temp 36.7 ?C (98 ?F) Resp 18 Ht 180.3 cm (5' 11 ) Wt 125.4 kg (276 lb 6.4 oz) SpO2 95% BMI 38.55 kg/m? Physical Exam Constitutional: Appearance: Normal appearance. He is obese. HENT: Head: Normocephalic and atraumatic. Nose: Nose normal. Mouth/Throat: Mouth: Mucous membranes are moist. Dentition: Normal dentition. Eyes: General: Lids are normal. Extraocular Movements: Extraocular movements intact. Conjunctiva/sclera: Conjunctivae normal. Pupils: Pupils are equal, round, and reactive to light. Neck: Thyroid: No thyroid mass or thyromegaly. Vascular: No carotid bruit. Trachea: Phonation normal. Cardiovascular: Rate and Rhythm: Normal rate and regular rhythm. Heart sounds: Normal heart sounds. No murmur heard. No friction rub. No gallop. Pulmonary: Effort: Pulmonary effort is normal. Breath sounds: Normal breath sounds. No wheezing or rales. Abdominal: General: Bowel sounds are normal. There is no distension. Palpations: Abdomen is soft. There is no mass. Tenderness: There is no abdominal tenderness. Musculoskeletal: General: No swelling or tenderness. Normal range of motion. Cervical back: Normal range of motion and neck supple. No edema. Lymphadenopathy: Cervical: No cervical adenopathy. Skin: General: Skin is warm and dry. Findings: No erythema or rash. Nails: There is no clubbing. Neurological: Mental Status: He is alert and oriented (more content not included)... [facility] 10-02-2022 Nurse Note Pt . Given 60ml kenalog with no complaints. Lot [id number] Exp 02/2023 [id number] Left glute im documented in this encounter [facility] 10-02-2022 Instructions Papito Khan DO - 10/02/2022 4:23 PM EDT Look up metamucil for weight loss [email or web address] documented in this encounter 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 TURMERIC ORAL Take by mouth. cetirizine (ZYRTEC) 10 mg tablet Take 1 tablet by mouth once daily. OTC NUTRITIONAL SUPPLEMENT Prostate plus/ Beta Prostate coffee xt/phosphatidyl serine (NEURIVA ORIGINAL ORAL) Take by mouth once daily. (Patient not taking: No sig reported) gabapentin (NEURONTIN) 300 mg capsule Take 1 capsule by mouth three times daily for 14 days. Do not start before January 03, 2021. (Patient not taking: No sig reported) 42 capsule 0 gabapentin (NEURONTIN) 100 mg capsule Take 1 capsule by mouth three times daily for 14 days. (Patient not taking: No sig reported) 42 capsule 0 ibuprofen (MOTRIN) 200 mg tablet Take 200 mg by mouth every 6 hours as needed. (Patient not taking: No sig reported) Cetirizine 10 mg cap Take by mouth once daily. (Patient not taking: Reported on 10/02/2022) No current facility-administered medications for this visit. 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 Suspected Sleep Apnea Social History Tobacco Use Smoking status: Never Smokeless tobacco: Never Vaping Use Vaping Use: Never used Substance Use Topics Alcohol use: Yes Comment: occasionally Drug use: No Family History Problem Relation Age of Onset other (scladerma) Mother at age 51 Cancer Father lung at age 85 COPD Father Diabetes Sister No Known Problems Sister No Known Problems Sister No Known Problems Sister Cancer Sister No Known Problems Brother No Known Problems Brother Cancer Maternal Grandfather lung Prostate Cancer Other 2 paternal uncles and one cousin Reviewed past medical history, family history and surgeries. All medications and supplements were reviewed with the patient. Review of Systems Constitutional: Negative for chills, diaphoresis, fever, malaise/fatigue and weight loss. HENT: Negative for ear pain and hearing loss. Eyes: Negative for blurred vision and double vision. Respiratory: Negative for cough and shortness of breath. Cardiovascular: Negative for chest pain, palpitations and leg swelling. Gastrointestinal: Negative for constipation, diarrhea and heartburn. Genitourinary: Negative for dysuria and frequency. Musculoskeletal: Negative for back pain, falls, joint pain and myalgias. Skin: Negative for itching and rash. Neurological: Negative for dizziness, weakness and headaches. Endo/Heme/Allergies: Does not bruise/bleed easily. Psychiatric/Behavioral: Negative for depression and substance abuse. The patient does not have insomnia. Objective BP 124/76 Pulse 92 Temp 36.7 C (98 F) Resp 18 Ht 180.3 cm (5' 11 ) Wt 125.4 kg (276 lb 6.4 oz) SpO2 95% BMI 38.55 kg/m Physical Exam Constitutional: Appearance: Normal appearance. He is obese. HENT: Head: Normocephalic and atraumatic. Nose: Nose normal. Mouth/Throat: Mouth: Mucous membranes are moist. Dentition: Normal dentition. Eyes: General: Lids are normal. Extraocular Movements: Extraocular movements intact. Conjunctiva/sclera: Conjunctivae normal. Pupils: Pupils are equal, round, and reactive to light. Neck: Thyroid: No thyroid mass or thyromegaly. Vascular: No carotid bruit. Trachea: Phonation normal. Cardiovascular: Rate and Rhythm: Normal rate and regular rhythm. Heart sounds: Normal heart sounds. No murmur heard. No friction rub. No gallop. Pulmonary: Effort: Pulmonary effort is normal. Breath sounds: Normal breath sounds. No wheezing or rales. Abdominal: General: Bowel sounds are normal. There is no distension. Palpations: Abdomen is soft. There is no mass. Tenderness: There is no abdominal tenderness. Musculoskeletal: General: No swelling or tenderness. Normal range of motion. Cervical back: Normal range of motion and neck supple. No edema. Lymphadenopathy: Cervical: No cervical adenopathy. Skin: General: Skin is warm and dry. Findings: No erythema or rash. Nails: There is no clubbing. Neurological: Mental Status: He is alert and oriented to person, place, and time. Cranial Nerves: No cranial nerve deficit. Motor: Motor function is intact. Coordination: Coordination normal. Gait: Gait is intact. Psychiatric: Attention and Perception: Attention normal. Mood and Affect: Mood and affect normal. Speech: Speech normal. Behavior: Behavior normal. Behavior is cooperative. Thought Content: Thought content normal. Cognition and Memory: Cognition and memory normal. Judgment: Judgment normal. ASSESSMENT/PLAN: 1. Poison boom - ICD9: 692.6, ICD10: L23.7 (primary diagnosis) - discussed skin care of rash - follow up if symptoms persist or worsen. - TRIAMCINOLONE ACETONIDE 40 MG/ML SUSPENSION FOR INJECTION 2. Obesity, Class II, BMI 35-39.9 - ICD9: 278.00, ICD10: E66.9 - CONSULT TO OBESITY MEDICINE Papito Khan DO documented in this encounter [facility] 03-08-2021 History of Presen t illness Narrative This is a 60-year-old male who I was asked to see by the patient for history of excessive daytime somnolence. The patient's reports that he snores at nighttime and has stop breathing episodes. She reports that he does have choking or gasping during sleep. He complains of daytime sleepiness and his ESS is elevated at 11. He reports having these problems for about 20 years. Usually goes to bed at 9 PM and is up at 5:30 AM. He will take a nap between 12 and 1:00 in the afternoon for about 1/2-hour. He has no difficulty in initiating sleep or maintaining sleep. He reports that his tells him he can fall asleep in a few seconds. He does drink 1 cup of coffee each morning. He reports having usual type dreams he has no history of restless leg syndrome.He has history of some renal lithiasis. He has had surgery on his right toe. Family history is positive for scleroderma, hepatitis, diabetes and his father was a COPD year and had a smoker. Patient himself never smoked and rarely drinks alcohol. He lives with his who is a non-smoker. He recently retired from [employer] and was [place] [place]. [facility] [address] DO Work Phone: 08-03-2020 Note HNO ID: [id number] Author: Ernestina Choudhury Service: ? Author Type: Nurse Spa Associate Type: Anesthesia Procedure Notes Filed: 08/03/2020 9:02 AM Note Text: ANESTHESIOLOGY PROCEDURE NOTE Airway General Information Procedure Start Time/Medication Administration: 08/03/2020 8:49 AM Patient location during procedure: OR Timeout Performed Pre-procedure: timeout performed Consent Obtained: Yes Patient identity confirmed: arm band, patient and family Staffing Anesthesiologist: Isaac Mackey MD SEALER OPERATOR: Ernestina Choudhury Performed by: SEALER OPERATOR Indications and Patient Condition Preoxygenated: yes Patient position: sniffing Manual In-Line Stabilization: No Indications for airway management: anesthesia anesthesia circuit Method: asleep Cricoid Pressure: No Final Airway Details Final airway type: supraglottic airway Number of attempts at approach: 1 Final Supraglottic Airway: i-gel Size 5 Seal Adequate: yes Failed airway: no Unrecognized esophageal intubation: no Airway not difficult SIGNATURE: Ernestina Choudhury APRN.CRNA PATIENT NAME: Mily Harris DATE: August 03, 2020 TIME: 9:01 AM CSN: [id number] [facility] documented as of this encounter (statuses as of 10/14/2022) [facility] History of Past illness Narrative* Problem Noted Date Diagnosed Date Resolved Date Lumbosacral neuritis 08/06/2013 014 Low back pain 08/06/2013 08/06/2013 documented as of this encounter (statuses as of 02/28/2023) [facility] History of Past illness Narrative* Problem Noted Date Diagnosed Date Resolved Date Lumbosacral neuritis 08/06/2013 014 Low back pain 08/06/2013 08/06/2013 documented as of this encounter (statuses as of 02/28/2023) [facility] History of Past illness Narrative* Problem Noted Date Diagnosed Date Resolved Date Lumbosacral neuritis 08/06/2013 014 Low back pain 08/06/2013 08/06/2013 documented as of this encounter (statuses as of 03/06/2023) [facility] History of Past illness Narrative* Problem Noted Date Diagnosed Date Resolved Date Lumbosacral neuritis 08/06/2013 014 Low back pain 08/06/2013 08/06/2013 documented as of this encounter (statuses as of 03/06/2023) [place] [address]-24-2014 History of Past illness Narrative* Problem Noted Date Diagnosed Date Resolved Date Lumbosacral neuritis 08/06/2013 014 Low back pain 08/06/2013 08/06/2013 documented as of this encounter (statuses as of 03/18/2023) [facility] History of Past illness Narrative* Problem Noted Date Diagnosed Date Resolved Date Lumbosacral neuritis 08/06/2013 014 Low back pain 08/06/2013 08/06/2013 documented as of this encounter (statuses as of 03/22/2023) [place] [address]-24-2014 History of Past illness Narrative* Problem Noted Date Diagnosed Date Resolved Date Lumbosacral neuritis 08/06/2013 014 Low back pain 08/06/2013 08/06/2013 documented as of this encounter (statuses as of 05/17/2023) [place] [address]-24-2014 History of Past illness Narrative* Problem Noted Date Diagnosed Date Resolved Date Lumbosacral neuritis 08/06/2013 014 Low back pain 08/06/2013 08/06/2013 documented as of this encounter (statuses as of 05/28/2023) [place] [address]-24-2014 History of Past illness Narrative* Problem Noted Date Diagnosed Date Resolved Date Lumbosacral neuritis 08/06/2013 014 Low back pain 08/06/2013 08/06/2013 documented as of this encounter (statuses as of 06/07/2023) [facility] - [facility]* MILY HARRIS is here for an initial evaluation. * Reason for Visit: Possible MENDEL, Snoring, Witnessed apnea. * Appointment requested by: Self Referral; PCP: Dr. Pearce. -Pulmonary Medicine-[address] Work Phone: Evaluation note* Diagnosis Poison boom- Primary Contact dermatitis and other eczema due to plants (except food) Obesity, Class II, BMI 35-39.9 Obesity, unspecified [facility] Chest pain, unspecified type- Primary Acute cough Bacterial sinusitis Unspecified sinusitis (chronic) Gastroesophageal reflux disease without esophagitis Esophageal reflux Hyperlipidemia, mixed Mixed hyperlipidemia Screening for prostate cancer Special screening for malignant neoplasm of prostate Obesity, Class II, BMI 35-39.9 Obesity, unspecified documented in this encounter [facility] note* Diagnosis Bronchitis- Primary Bronchitis, not specified as acute or chronic documented in this encounter [facility] note* Diagnosis Chest pain, unspecified type documented in this encounter [facility] note* Diagnosis Bacterial sinusitis- Primary Unspecified sinusitis (chronic) documented in this encounter [facility] note* Diagnosis Persistent cough- Primary Cough Bacterial sinusitis Unspecified sinusitis (chronic) Bronchitis Bronchitis, not specified as acute or chronic documented in this encounter [facility] note* Diagnosis RONALDO positive Other and unspecified nonspecific immunological findings Scl-70 antibody positive Other and unspecified nonspecific immunological findings ILD (interstitial lung disease) (HCC) Postinflammatory pulmonary fibrosis documented in this encounter [facility] Summary Purpose Family History No Family History Records FoundNo Family History Records FoundNo Family History Records FoundNo Family History Records FoundNo Family History Records FoundNo Family History Records Found Advance Directives No Advanced Directives Records FoundNo Advanced Directives Records FoundNo Advanced Directives Records FoundNo Advanced Directives Records FoundNo Advanced Directives Records FoundNo Advanced Directives Records Found Medications Administered Section Inactive Administered Medications - up to 3 most recent administrations Medication Order MAR Action Action Date Dose Rate Site triamcinolone acetonide 60 mg injection (KeNALog 40) 60 mg, INTRAMUSCULAR, ONCE, 1 dose, On 10/02/22 at 1730 Given 10/02/2022 5:26 PM EDT 60 mg [place], Left Reason for Referral Specialty Diagnoses / Procedures Referred By Halima santiago Referred To Contact Diagnoses Bronchitis Papito Khan DO [address] [place] [address] Referral ID Status Reason Start Date Expiration Date V isits Requested Visits Authorized [id number] Pending Review 1 1 Referral ID Status Reason Start Date Expiration Date Visits Re quested Visits Authorized [id number] Closed 1 1 Specialty Diagnoses / Procedures Referred By Halima santiago Referred To Contact [facility] Diagnoses RONALDO positive 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 antibody positive ILD (interstitial lung disease) (HCC) Procedures CONSULT TO RHEUM/IMMUN DISEASE OFFICE/OUTPATIENT [facility] 60 MINUTES Papito Khan DO [address] [place] [address] Azul Calixto [address] [facility] [address] [place] [address] Referral ID Status Reason Start Date Expiration Date Visits Requested Visits Authorized [id number] Authorized PCP Requested Referral 05/28/2023 05/27/2024 1 1 Additional Source Comments (unrecognized sect ion and content) No Status Records FoundNo Status Records FoundNo Status Records FoundNo Status Records FoundNo Status Records FoundNo Status Records Found INFORMATION SOURCE (unrecogn ized section and content) DATE CREATED AUTHOR AUTHOR'S ORGANIZ ATION 03/09/2021 [employer] DATE CREATED AUTHOR AUTHOR'S ORGANIZ ATION 04/13/2021 [facility] DATE CREATED AUTHOR AUTHOR'S ORGANIZ ATION 05/19/2023 [facility] DATE CREATED AUTHOR AUTHOR'S ORGANIZ ATION 05/27/2023 [facility] DATE CREATED AUTHOR AUTHOR'S ORGANIZ ATION 06/15/2023 [facility] Source Comments (unrecognize d section and content) In the event this informatio n is protected by the Federal Confidentiality of Alcohol and Drug Abuse Patient Records regulations: The Federal rules restrict any use of the information to criminally investigate or prosecute any alcohol or drug abuse patient.[facility] the event this information is protected by the Federal Confidentiality of Alcohol and Drug Abuse Patient Records regulations: The Federal rules restrict any use of the information to criminally investigate or prosecute any alcohol or drug abuse patient.[facility] the event this information is protected by the Federal Confidentiality of Alcohol and Drug Abuse Patient Records regulations: The Federal rules restrict any use of the information to criminally investigate or prosecute any alcohol or drug abuse patient.[facility] the event this information is protected by the Federal Confidentiality of Alcohol and Drug Abuse Patient Records regulations: The Federal rules restrict any use of the information to criminally investigate or prosecute any alcohol or drug abuse patient.[facility] the event this information is protected by the Federal Confidentiality of Alcohol and Drug Abuse Patient Records regulations: The Federal rules restrict any use of the information to criminally investigate or prosecute any alcohol or drug abuse patient.[facility] the event this information is protected by the Federal Confidentiality of Alcohol and Drug Abuse Patient Records regulations: The Federal rules restrict any use of the information to criminally investigate or prosecute any alcohol or drug abuse patient.[facility] the event this information is protected by the Federal Confidentiality of Alcohol and Drug Abuse Patient Records regulations: The Federal rules restrict any use of the information to criminally investigate or prosecute any alcohol or drug abuse patient.[facility] the event this information is protected by the Federal Confidentiality of Alcohol and Drug Abuse Patient Records regulations: The Federal rules restrict any use of the information to criminally investigate or prosecute any alcohol or drug abuse patient.[facility] the event this information is protected by the Federal Confidentiality of Alcohol and Drug Abuse Patient Records regulations: The Federal rules restrict any use of the information to criminally investigate or prosecute any alcohol or drug abuse patient.[facility] the event this information is protected by the Federal Confidentiality of Alcohol and Drug Abuse Patient Records regulations: The Federal rules restrict any use of the information to criminally investigate or prosecute any alcohol or drug abuse patient.[facility] Reason for Visit (unrecogniz ed section and content) Reason Comments Cough Had a cold 1-2 weeks ago and the cough is still lingering, worse at night. States he is not sure if acid reflux is causing the cough because the one day he did take a tums and it did seem to help. Took mucinex and alkaseltzer cold for the first week. Still having a deep dry cough, can be a little productive first thing in the morning. 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, 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, [facility] [employer] 04/23/19 Marquis Davila MD [address] [place] [address] Pulmonary and Critical Care Medicine 05/10/23 Machine [employer] Relationship Specialty Start Date End Date Papito Khan DO [address] [place] [address] PCP - General Family Medicine 10/02/22 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 [employer] 04/23/19 Marquis Davila MD [address] [place] [address] Pulmonary and Critical Care Medicine 05/10/23 FOR RECORDS PERTAINING TO PATIENTS WHO ARE OR HAVE BEEN ENROLLED IN A CHEMICAL DEPENDENCY/SUBSTANCEABUSE PROGRAM, SOME INFORMATION MAY BE OMITTED. This clinical summary was aggregated from multiple sources. Caution should be exercised in using it in the provision of clinical care. This summary normalizes information from multiple sources, and as a consequence, information in this document may materially change the coding, format and clinical context of patient data. In addition, data may be omitted in some cases. CLINICAL DECISIONS SHOULD BE BASED ON THE PRIMARY CLINICAL RECORDS. [employer] provides no warranty or guarantee of the accuracy or completeness of information in this document.
[2023-06-17 18:49] LABS: AST(SGOT) 28 U/L (15-37); Alanine Aminotransfer ALT/SGPT 44 U/L (16-61); Albumin, Serum 4.1 g/dL (3.2-5.0); Alkaline Phosphatase 62 U/L (45-117); Anion Gap 8 (5-15); BUN 17 mg/dL (7-18); BUN/Creat Ratio 16.3 RATIO (10-20); CRP 4.68 mg/L (0.0-3.0); Calcium,Total 9.4 mg/dL (8.5-10.1); Chloride 105 mmol/L (98-107); Creatinine, Serum 1.04 mg/dL (0.70-1.30); EST Glomerular Filtration Rate 77 mL/min (>60); Est Glom Filt Rate - Afr Amer 93 mL/min (>60); Globulin 4.1 g/dL (2.2-4.2); Glucose 88 mg/dL (74-106); Potassium 3.8 mmol/L (3.5-5.1); Protein, Total 8.2 g/dL (6.4-8.2); Sodium Level 137 mmol/L (136-145)
== END | disposition home or self-care (01) ==
PROVIDERS: PCP Family Medicine; Referring Provider Internal Medicine Rheumatology; Visit Provider Internal Medicine Rheumatology
DX: R76.8 Other specified abnormal immunological findings in serum (principal); M51.37 Other intervertebral disc degeneration, lumbosacral region; M19.071 Primary osteoarthritis, right ankle and foot; K21.9 Gastro-esophageal reflux disease without esophagitis; G47.33 Obstructive sleep apnea (adult) (pediatric); J30.2 Other seasonal allergic rhinitis
CPT/HCPCS: 36415; 80053; 81001; 82570; 84156; 85025; 85652; 86140